=== PATIENT | male | born 1970 | race Caucasian/White ===

== ENCOUNTER 2018-08-20 09:42 | Emergency (ER) | payer MEDICAID ==
[~2018-08-20] VITALS: Ht 170.2 cm; Wt 66.9 kg
[2018-08-20 09:45] VITALS: BP 107/72
--- NOTE | 2018-08-20 12:19 | NUR ---
Patient given discharge instructions and they have confirmed that they understand the instructions. Patient ambulatory with steady gait.
== END 2018-08-20 12:43 | disposition home or self-care (01) ==
LOC: ED 12:28
DX: G89.29 Other chronic pain (principal); M25.512 Pain in left shoulder; H60.501 Unspecified acute noninfective otitis externa, right ear
CPT/HCPCS: 99283

== ENCOUNTER 2018-08-21 12:02 | Emergency (ER) | payer MEDICAID ==
[~2018-08-21] VITALS: Ht 170.2 cm; Wt 66.6 kg
--- NOTE | 2018-08-21 12:13 | NUR ---
pt presents to ED with c/o right ear pain x 1 week, pt states that he started ear drops prescribed yesterday but pain became worse last night and this am. pt states "I told them I was on probation yesterday so I couldn't get pain medication, but now I think that was a mistake." pt a&ox4, ambulatory with steady gait, resps even and unlabored. s/o at bedside. pt provided with warm blanket. call light in reach. awaiting MD and orders.
[2018-08-21] MEDS ORDERED: CIPROFLOXACIN/HYDROCORTISONE EAR SUSP 0.2-1%, 10ML RIGHT EAR ONE (12:23)
[2018-08-21] MEDS ORDERED: IBUPROFEN 800 MG TABLET PO ONE (12:30)
--- NOTE | 2018-08-21 12:48 | NUR ---
cipro ear drops requested from pharmacy, pt instructed to provide clean catch ua. sample kit provided. pt verbalizes understanding. lab at bedside for draw.
[2018-08-21] MEDS ORDERED: IBUPROFEN 800 MG TABLET ONE ×2 (12:52)
[2018-08-21 12:59] LABS: BASOPHILS # (AUTO) 0.08 x10^3/uL (0-0.1); BASOPHILS % (AUTO) 1 % (0-1); EOSINOPHILS # (AUTO) 0.03 x10^3/uL (0-0.4); EOSINOPHILS % (AUTO) 0 % (1-7); LYMPHOCYTES % (AUTO) 8 % (22-44); MD NO; MEAN CORPUSCULAR HEMOGLOBIN 32.4 pg (27.5-34.5); MEAN CORPUSCULAR HGB CONC 33.8 g/dL (33.2-36.2); MEAN CORPUSCULAR VOLUME 95.9 fL (81-97); MEAN PLATELET VOLUME 8.5 fL (7.4-10.4); MONOCYTES # (AUTO) 1.27 x10^3/uL (0.2-0.8); MONOCYTES % (AUTO) 9 % (2-9); NEUTROPHILS # (AUTO) 11.54 x10^3/uL (1.8-6.8); NEUTROPHILS % (AUTO) 82 % (42-75); PLATELET COUNT 220 x10^3/uL (130-400); RED BLOOD COUNT 5.25 x10^6/uL (4.38-5.82); RED CELL DISTRIBUTION WIDTH 12.8 % (9.4-14.8)
[2018-08-21 13:08] LABS: ALANINE AMINOTRANSFERASE 49 U/L (12-78); ALBUMIN 4.2 g/dL (3.4-5.0); ANION GAP 5 mmol/L (5-15); CALCIUM 9.3 mg/dL (8.5-10.1); CHLORIDE 106 mmol/L (98-107); CREATININE 0.96 mg/dL (0.7-1.3)
[2018-08-21 13:10] LABS: ALKALINE PHOSPHATASE 84 U/L (45-117); BILIRUBIN,TOTAL 0.5 mg/dL (0.2-1.0)
--- NOTE | 2018-08-21 13:38 | NUR ---
EAR WICK INSERTED BY QUETA BALDERRAMA, EAR DROPS ADMINISTERED BY QUETA, PT TOLERATED WELL. AWAITING DC PAPERWORK AT THIS TIME.
--- NOTE | 2018-08-21 14:05 | NUR ---
urine collected and sent to lab, urine sample pending. pt to be dc'd once ua results.
[2018-08-21 14:22] LABS: MICROSCOPIC NOT IND
[2018-08-21 14:31] LABS: CULTURE INDICATED? NO
--- NOTE | 2018-08-21 15:11 | NUR ---
Providing medication per verbal order with read back and EMAR for pt's oral temperature of 100.0 F.
[2018-08-21 15:12] VITALS: BP 106/69
[2018-08-21] MEDS ORDERED: ACETAMINOPHEN 500 MG TABLET ONE (15:12)
--- NOTE | 2018-08-21 15:19 | NUR ---
URINE RESULTS AND REPEAT VS REVIEWED BY [facility], ORDER RECEIVED FOR TYLENOL AND DISCHARGE. PT REFUSES TO STAY FOR REPEAT VS REASSESSMENT S/P TYLENOL. PT GIVEN DC INSTRUCTIONS AND SCRIPT. PT EDUCATED REGARDING DC RX. PT A&O, RESPS EVEN AND UNLABORED, NADN AT DC. PT AMB TO DC DESK WITH STEADY GAIT, ACCOMPANIED BY S/O.
[2018-08-21] MEDS ORDERED: ACETAMINOPHEN 500 MG TABLET PO ONE (15:30)
== END 2018-08-21 15:20 | disposition home or self-care (01) ==
LOC: ED 12:46
DX: H60.501 Unspecified acute noninfective otitis externa, right ear (principal); M54.5 Low back pain; F17.200 Nicotine dependence, unspecified, uncomplicated
CPT/HCPCS: 36415; 80053; 81003; 85025; 99283; 99284

== ENCOUNTER 2019-03-22 23:19 | Emergency (ER) | payer MEDICAID ==
[~2019-03-22] VITALS: Ht 167.6 cm; Wt 66.1 kg
[2019-03-22 23:22] VITALS: BP 136/97
[2019-03-22] MEDS ORDERED: DEXAMETHASONE 4 MG TABLET ONE ×2 (23:43)
[2019-03-23] MEDS ORDERED: DEXAMETHASONE 4 MG TABLET PO ONE
--- NOTE | 2019-03-23 00:25 | NUR ---
DC EDUCATION PROVIDED, PT DEMONSTRATES UNDERSTANDING. PT AMBULATED STEADILY TO DC WITH RN AND FAMILY
== END 2019-03-23 00:27 | disposition home or self-care (01) ==
LOC: ED 03-23 00:21
DX: B34.9 Viral infection, unspecified (principal)
CPT/HCPCS: 71046; 99283

== ENCOUNTER 2019-05-14 21:07 | Emergency (ER) | payer MEDICAID ==
[~2019-05-14] VITALS: Ht 170.2 cm; Wt 65.8 kg
[2019-05-14] MEDS ORDERED: METHOCARBAMOL 750 MG TABLET PO ONE (22:00)
[2019-05-14] MEDS ORDERED: IBUPROFEN 800 MG TABLET PO ONE (22:00)
[2019-05-14] MEDS ORDERED: IBUPROFEN 800 MG TABLET ONE (22:43)
[2019-05-14] MEDS ORDERED: METHOCARBAMOL 750 MG TABLET ONE (22:43)
[2019-05-14 22:51] VITALS: BP 117/82
== END 2019-05-14 23:00 | disposition home or self-care (01) ==
LOC: ED 22:41
DX: S86.911A Strain of unspecified muscle(s) and tendon(s) at lower leg level, right leg, initial encounter (principal); J44.9 Chronic obstructive pulmonary disease, unspecified; F17.200 Nicotine dependence, unspecified, uncomplicated; X58.XXXA Exposure to other specified factors, initial encounter; Y93.89 Activity, other specified; Y92.410 Unspecified street and highway as the place of occurrence of the external cause; Y99.8 Other external cause status
CPT/HCPCS: 99283